=== PATIENT | female | born 1975 | race Caucasian/White ===

== ENCOUNTER 2016-08-11 15:27 | Emergency (ER) | payer OTHER ==
[2016-08-11 17:56] LABS: HEMOGLOBIN 8.8 gm/dl (12.3-15.3); RED BLOOD COUNT 5.07 M/UL (4.00-5.10); WHITE BLOOD COUNT 11.3 K/UL (4.5-11.0)
[2016-08-11 18:18] LABS: BUN/CREATININE RATIO 9 (0-10)
== END 2016-08-11 18:50 | disposition home or self-care (01) ==
LOC: ER1 15:27
PROVIDERS: Physician Assistant Medical
DX: R10.30 Lower abdominal pain, unspecified (principal); R31.9 Hematuria, unspecified; R11.0 Nausea; Z90.49 Acquired absence of other specified parts of digestive tract
CPT/HCPCS: 36415; 80053; 81001; 82150; 83690; 84703; 85025; 99284